=== PATIENT | male | born 1940 | race Caucasian/White ===

== ENCOUNTER 2018-11-07 17:01 | Inpatient (IN) | payer MEDICARE, MEDICAID ==
[2018-11-07] MEDS ORDERED: CARV25TA2 PO (17:23)
[2018-11-07] MEDS ORDERED: BISA10SU61 RC (17:23)
[2018-11-07] MEDS ORDERED: POLY17PO4 PO (17:23)
[2018-11-07] MEDS ORDERED: OXCA600T5 PO (17:23)
[2018-11-07] MEDS ORDERED: ERGO400T7 PO (17:23)
[2018-11-07] MEDS ORDERED: CHOL200026 PO (17:23)
[2018-11-07] MEDS ORDERED: MELA5TAB PO (17:23)
[2018-11-07] MEDS ORDERED: FAMO-131 PO (17:23)
[2018-11-07] MEDS ORDERED: GUAI5SYR4 PO (17:23)
[2018-11-07] MEDS ORDERED: NITR0.4T48 SL (17:23)
[2018-11-07] MEDS ORDERED: RISP1TAB7 PO (17:23)
[2018-11-07] MEDS ORDERED: AMLO-365 PO (17:23)
[2018-11-07] MEDS ORDERED: ASPI-605 PO (17:23)
[2018-11-07] MEDS ORDERED: ACET-73 PO (17:23)
[2018-11-07] MEDS ORDERED: ATOR80TA PO (17:23)
[2018-11-07] MEDS ORDERED: CLON0.2T PO (17:23)
[2018-11-07] MEDS ORDERED: LUBI8CAP PO (17:23)
[2018-11-07] MEDS ORDERED: LATA2.5D2 EACHEYE (17:23)
[2018-11-07] MEDS ORDERED: FOLI1TAB16 PO (17:23)
[2018-11-07] MEDS ORDERED: MAGN400O6 PO (17:23)
[2018-11-07] MEDS ORDERED: DOCU-141 PO (17:23)
[2018-11-07] MEDS ORDERED: ACETAMINOPHEN 325 MG TABLET PO PRN (18:30)
[2018-11-07] MEDS ORDERED: TEMAZEPAM 7.5 MG CAPSULE PO PRN (18:30)
[2018-11-07] MEDS ORDERED: LORAZEPAM 0.5 MG TABLET PO PRN (18:30)
[2018-11-07] MEDS ORDERED: MAG HYDROX/AL HYDROX/SIMETH 30 ML UDC PO PRN (18:30)
[2018-11-07] MEDS ORDERED: BLOOD SUGAR DIAGNOSTIC 1 EACH STRIP IN ONE (18:30)
[2018-11-07] MEDS ORDERED: MAGNESIUM HYDROXIDE 30 ML UDC PO PRN (18:30)
[2018-11-08] MEDS: QUETIAPINE FUMARATE 25 MG TABLET PO SCH ×3 (09:46→21:20)
[2018-11-08] MEDS: OXCARBAZEPINE 150 MG TABLET PO SCH ×2 (09:46→16:14)
[2018-11-08] MEDS ORDERED: CLONIDINE HCL 0.1 MG TABLET PO STA (18:23)
[2018-11-08] MEDS ORDERED: MAGNESIUM HYDROXIDE 30 ML UDC PO PRN (18:30)
[2018-11-08] MEDS ORDERED: [UNRECOGNIZED DRUG - OTHER] PO SCH (18:30)
[2018-11-08] MEDS ORDERED: VALSARTAN PO SCH (18:30)
[2018-11-08] MEDS ORDERED: HCTZ PO SCH (18:30)
[2018-11-08] MEDS ORDERED: NITROGLYCERIN 0.4 MG/TAB BOTTLE SL PRN (18:30)
[2018-11-08] MEDS ORDERED: AMLODIPINE PO SCH (18:30)
[2018-11-08] MEDS ORDERED: BISACODYL SUPP (10 MG) 10 MG/SUPP.RECT SUPP.RECT RC PRN (18:30)
[2018-11-08] MEDS: FAMOTIDINE (20 MG) 20 MG TABLET PO SCH (18:52)
[2018-11-08] MEDS: DOCUSATE SODIUM 100 MG CAPSULE PO SCH (18:52)
[2018-11-08] MEDS: FOLIC ACID 1 MG TABLET PO SCH (18:52)
[2018-11-08] MEDS ORDERED: CLONIDINE HCL 0.1 MG TABLET PO PRN (19:00)
[2018-11-08] MEDS: CARVEDILOL 12.5 MG TABLET PO SCH (20:53)
[2018-11-08] MEDS: ATORVASTATIN 40 MG TABLET PO SCH (21:20)
[2018-11-08] MEDS: LATANOPROST EYE DROP 0.005% 2.5 ML BOTTLE OP SCH (21:25)
[2018-11-08] MEDS ORDERED: Medication Not On Formulary EA (Melatonin 5 MG) PO SCH (22:00)
[2018-11-09] MEDS: ASPIRIN EC 81 MG TABLET.DR PO SCH (08:50)
[2018-11-09] MEDS: FAMOTIDINE (20 MG) 20 MG TABLET PO SCH (08:50)
[2018-11-09] MEDS: QUETIAPINE FUMARATE 25 MG TABLET PO SCH ×3 (08:50→21:50)
[2018-11-09] MEDS: FOLIC ACID 1 MG TABLET PO SCH (08:51)
[2018-11-09] MEDS: AMLODIPINE BESYLATE 10 MG TABLET PO SCH (08:51)
[2018-11-09] MEDS: VALSARTAN 80 MG TABLET PO SCH (08:52)
[2018-11-09] MEDS: POLYETHYLENE GLYCOL 3350 17 GM POWD.PACK PO SCH (08:53)
[2018-11-09] MEDS: CARVEDILOL 12.5 MG TABLET PO SCH ×2 (08:53→16:42)
[2018-11-09] MEDS: OXCARBAZEPINE 150 MG TABLET PO SCH ×2 (08:54→16:41)
[2018-11-09] MEDS: CHOLECALCIFEROL 1,000 UNIT TABLET (VIT D3) PO SCH (09:01)
[2018-11-09] MEDS: HYDROCHLOROTHIAZIDE 25 MG TABLET PO SCH (09:15)
[2018-11-09] MEDS: DOCUSATE SODIUM 100 MG CAPSULE PO SCH ×2 (09:15→16:40)
[2018-11-09] MEDS: ATORVASTATIN 40 MG TABLET PO SCH (21:50)
[2018-11-09] MEDS: LATANOPROST EYE DROP 0.005% 2.5 ML BOTTLE OP SCH (21:50)
[2018-11-10] MEDS: OXCARBAZEPINE 150 MG TABLET PO SCH ×2 (08:28→16:04)
[2018-11-10] MEDS: POLYETHYLENE GLYCOL 3350 17 GM POWD.PACK PO SCH (08:28)
[2018-11-10] MEDS: CARVEDILOL 12.5 MG TABLET PO SCH ×2 (08:29→16:04)
[2018-11-10] MEDS: QUETIAPINE FUMARATE 25 MG TABLET PO SCH ×3 (08:29→22:12)
[2018-11-10] MEDS: DOCUSATE SODIUM 100 MG CAPSULE PO SCH ×2 (08:29→16:03)
[2018-11-10] MEDS: ASPIRIN EC 81 MG TABLET.DR PO SCH (08:29)
[2018-11-10] MEDS: VALSARTAN 80 MG TABLET PO SCH (08:30)
[2018-11-10] MEDS: CHOLECALCIFEROL 1,000 UNIT TABLET (VIT D3) PO SCH (08:30)
[2018-11-10] MEDS: FOLIC ACID 1 MG TABLET PO SCH (08:30)
[2018-11-10] MEDS: HYDROCHLOROTHIAZIDE 25 MG TABLET PO SCH (08:30)
[2018-11-10] MEDS: AMLODIPINE BESYLATE 10 MG TABLET PO SCH (08:32)
[2018-11-10] MEDS: FAMOTIDINE (20 MG) 20 MG TABLET PO SCH (08:33)
[2018-11-10] MEDS ORDERED: ERGOCALCIFEROL (VITAMIN D 2) 50,000 UNIT CAPSULE PO SCH (09:00)
[2018-11-10] MEDS: LATANOPROST EYE DROP 0.005% 2.5 ML BOTTLE OP SCH (22:11)
[2018-11-10] MEDS: ATORVASTATIN 40 MG TABLET PO SCH (22:11)
[2018-11-11] MEDS: POLYETHYLENE GLYCOL 3350 17 GM POWD.PACK PO SCH (08:53)
[2018-11-11] MEDS: DOCUSATE SODIUM 100 MG CAPSULE PO SCH ×2 (08:55→17:18)
[2018-11-11] MEDS: OXCARBAZEPINE 150 MG TABLET PO SCH ×2 (08:55→17:19)
[2018-11-11] MEDS: HYDROCHLOROTHIAZIDE 25 MG TABLET PO SCH (08:56)
[2018-11-11] MEDS: VALSARTAN 80 MG TABLET PO SCH (08:57)
[2018-11-11] MEDS: AMLODIPINE BESYLATE 10 MG TABLET PO SCH (08:58)
[2018-11-11] MEDS: QUETIAPINE FUMARATE 25 MG TABLET PO SCH ×3 (08:58→21:46)
[2018-11-11] MEDS: FOLIC ACID 1 MG TABLET PO SCH (08:59)
[2018-11-11] MEDS: CHOLECALCIFEROL 1,000 UNIT TABLET (VIT D3) PO SCH (08:59)
[2018-11-11] MEDS: ASPIRIN EC 81 MG TABLET.DR PO SCH (08:59)
[2018-11-11] MEDS: FAMOTIDINE (20 MG) 20 MG TABLET PO SCH (08:59)
[2018-11-11] MEDS: CARVEDILOL 12.5 MG TABLET PO SCH ×2 (09:00→17:19)
[2018-11-11] MEDS: LATANOPROST EYE DROP 0.005% 2.5 ML BOTTLE OP SCH (21:47)
[2018-11-11] MEDS: ATORVASTATIN 40 MG TABLET PO SCH (21:47)
[2018-11-12] MEDS: CARVEDILOL 12.5 MG TABLET PO SCH (09:00)
[2018-11-12] MEDS: OXCARBAZEPINE 150 MG TABLET PO SCH (09:00)
[2018-11-12] MEDS: POLYETHYLENE GLYCOL 3350 17 GM POWD.PACK PO SCH (09:00)
[2018-11-12] MEDS: AMLODIPINE BESYLATE 10 MG TABLET PO SCH (09:00)
[2018-11-12] MEDS: DOCUSATE SODIUM 100 MG CAPSULE PO SCH (10:05)
[2018-11-12] MEDS: FAMOTIDINE (20 MG) 20 MG TABLET PO SCH (10:05)
[2018-11-12] MEDS: VALSARTAN 80 MG TABLET PO SCH (10:05)
[2018-11-12] MEDS: ASPIRIN EC 81 MG TABLET.DR PO SCH (10:05)
[2018-11-12] MEDS: FOLIC ACID 1 MG TABLET PO SCH (10:05)
[2018-11-12] MEDS: HYDROCHLOROTHIAZIDE 25 MG TABLET PO SCH (10:06)
[2018-11-12] MEDS: QUETIAPINE FUMARATE 25 MG TABLET PO SCH (10:06)
[2018-11-12] MEDS: CHOLECALCIFEROL 1,000 UNIT TABLET (VIT D3) PO SCH (10:07)
[2018-11-12] MEDS ORDERED: ASPI-1152 PO (14:16)
[2018-11-12] MEDS ORDERED: MAG30ORA PO (14:16)
[2018-11-12] MEDS ORDERED: VALS80TA2 PO (14:16)
[2018-11-12] MEDS ORDERED: AMLO10TA4 PO (14:16)
[2018-11-12] MEDS ORDERED: HYDR25TA4 PO (14:16)
[2018-11-12] MEDS ORDERED: ACET-868 PO (14:16)
[2018-11-12] MEDS ORDERED: CHOL100044 PO (14:16)
[2018-11-12] MEDS ORDERED: QUET25TA PO ×2 (14:16)
[2018-11-13] MEDS ORDERED: QUETIAPINE FUMARATE 25 MG TABLET PO SCH (22:00)
== END 2018-11-12 13:29 | disposition short-term general hospital (02) | DRG 885 ==
DX: F29 Unspecified psychosis not due to a substance or known physiological condition (principal); E43 Unspecified severe protein-calorie malnutrition; N17.0 Acute kidney failure with tubular necrosis; N18.9 Chronic kidney disease, unspecified; F03.91 Unspecified dementia, unspecified severity, with behavioral disturbance; I50.32 Chronic diastolic (congestive) heart failure; I13.0 Hypertensive heart and chronic kidney disease with heart failure and stage 1 through stage 4 chronic kidney disease, or unspecified chronic kidney disease; F41.9 Anxiety disorder, unspecified; I25.10 Atherosclerotic heart disease of native coronary artery without angina pectoris; E78.5 Hyperlipidemia, unspecified; F32.9 Major depressive disorder, single episode, unspecified

== ENCOUNTER 2018-11-12 13:56 | Inpatient (IN) | payer MEDICARE, MEDICAID ==
[~2018-11-12] VITALS: Ht 170.2 cm; Wt 87.1 kg
[~2018-11-12 13:56] MED LIST: ACET-73 PO; AMLO-365 PO; ASPI-605 PO; ATOR80TA PO; BISA10SU61 RC; CARV25TA2 PO; CHOL200026 PO; CLON0.2T PO; DOCU-141 PO; ERGO400T7 PO; FAMO-131 PO; FOLI1TAB16 PO; GUAI5SYR4 PO; LATA2.5D2 EACHEYE; LUBI8CAP PO; MAGN400O6 PO; MELA5TAB PO; NITR0.4T48 SL; OXCA600T5 PO; POLY17PO4 PO; RISP1TAB7 PO
[2018-11-12] MEDS ORDERED: CHOL100044 PO (14:16)
[2018-11-12] MEDS ORDERED: VALS80TA2 PO (14:16)
[2018-11-12] MEDS ORDERED: ACET-868 PO (14:16)
[2018-11-12] MEDS ORDERED: AMLO10TA4 PO (14:16)
[2018-11-12] MEDS ORDERED: MAG30ORA PO (14:16)
[2018-11-12] MEDS ORDERED: QUET25TA PO ×2 (14:16)
[2018-11-12] MEDS ORDERED: HYDR25TA4 PO (14:16)
[2018-11-12] MEDS ORDERED: ASPI-1152 PO (14:16)
--- NOTE | 2018-11-12 15:15 | NUR ---
ADMISSION NOTE PT WAS BROUGHT VIA BED AT THIS TIME, A/O X1 BREATHING AND EVEN AND UNLABORED ON RA WITH NO S/S OF ANY DISTRESS OR PAIN AT THIS TIME, PER FRANKO ARCHER PT IS ON BEDREST, INCONTINENT, UA WAS COLLECTED AND SENT TO LAB PER FRANKO ARCHER, SAFETY PRECAUTIONS IN PLACE, CALL LIGHT WITHIN REACH, SITTER AT BEDSIDE, WILL MONITOR PT ACCORDINGLY
--- NOTE | 2018-11-12 15:22 | NUR ---
RN NOTE HOSPITALIST MARVA CAICEDO DNP MADE AWARE THAT PT IS ON FLOOR, WILL AWAIT FOR ORDERS.
[2018-11-12] MEDS ORDERED: TEMAZEPAM 15 MG CAPSULE PO PRN (16:00)
[2018-11-12] MEDS ORDERED: ONDANSETRON HCL/PF 4 MG/2 ML VIAL IVP PRN (16:00)
[2018-11-12] MEDS ORDERED: MAG HYDROX/AL HYDROX/SIMETH 30 ML UDC PO PRN (16:00)
[2018-11-12] MEDS ORDERED: IV NS 0.9% 500 ML IV ONE (16:00)
[2018-11-12] MEDS ORDERED: MAGNESIUM HYDROXIDE 30 ML UDC PO PRN (16:00)
[2018-11-12] MEDS ORDERED: HYDROCODONE/APAP 5/325MG 1 EACH TABLET PO PRN (16:00)
[2018-11-12] MEDS ORDERED: ACETAMINOPHEN 325 MG TABLET PO PRN (16:00)
--- NOTE | 2018-11-12 16:15 | NUR ---
RN NOTE 500 ML BOLUS GIVEN AT THIS TIME ORDERED.
--- NOTE | 2018-11-12 16:43 | NUR ---
RN NOTE HOSPITALIST INFORMED THAT PT IS COMBATIVE AND CONSTANTLY TRYING TO GET OUT OF BED. ORDERS FOR SOFT WRIST RESTRAINTS GIVE, WILL IMPLEMENT AND CARRY OUT
[2018-11-12] MEDS: IV NS 0.9% 1,000 ML IV PRN (17:32)
--- NOTE | 2018-11-12 18:35 | NUR ---
RN CLOSING NOTE PT IN BED AT LOWEST AND LOCKED POSITION WITH SIDE RAILS UP X2, A/O X1 [place] SPEAKING CONFUSED, BREATHING EVEN AND UNLABORED ON 2L VIA NC, NO S/S OF ANY PAIN OR DISTRESS AT THIS TIME, IV IS PATENT AND INTACT WITH IVF RUNNING AT 100 ML/HR, SAFETY PRECAUTIONS IN PLACE, CALL LIGHT WITHIN REACH, SITTER AT BEDSIDE, WILL ENDORSE TO NIGHT RN FOR CIARAN.
--- NOTE | 2018-11-12 19:00 | NUR ---
RN OPENING NOTES Received patient A/O x1, awake on semi-Rdz's position on bed. On O2 inhalation via NC @ 2LPM, saturating well, no SOB/respiratory distress noted. With bilateral soft wrist restraints in place. With sitter at bedside at all times. No complaints made at this time, no s/sx of discomfort noted. Kept on bed clean, dry and comfortable. Will continue to monitor accordingly.
[2018-11-12] MEDS: MORPHINE SULFATE INJ 2 MG/ML DISP.SYRIN IV PRN (19:56)
--- NOTE | 2018-11-12 20:35 | NUR ---
MS RN NOTES Received a call from Paige [phone]. Inquiries answered with satisfaction. Asked the about patient's L index finger. Per , it was noted swollen since the patient is at [facility] for unknown reason.
[2018-11-13] MEDS: IV NS 0.9% 1,000 ML IV PRN ×2 (03:18→15:45)
[2018-11-13] MEDS: MORPHINE SULFATE INJ 2 MG/ML DISP.SYRIN IV PRN ×2 (03:40→23:22)
[2018-11-13 07:05] LABS: CALCIUM, SERUM 9.4 mg/dL (8.5-10.1); CARBON DIOXIDE 24 mmol/L (21-32); CHLORIDE 107 mmol/L (98-107); CREATININE 2.5 mg/dL (0.6-1.3); GLUCOSE 102 mg/dL (74-106); PHOSPHORUS 3.7 mg/dL (2.5-4.9); POTASSIUM 4.3 mmol/L (3.5-5.1); SODIUM SERUM 141 mmol/L (136-145); UREA NITROGEN, BLOOD 52 mg/dL (7-18)
--- NOTE | 2018-11-13 07:15 | NUR ---
RN NOTES PATIENT IN BED ALERT ORIENTED X 1. NO ACUTE DISTRESS NOTED. BREATHING UNLABORED. IV ACCESS PATENT AND INTACT. NO REDNESS OR SWELLING NOTED. SAFETY MEASURES IN PLACE. CALL LIGHT WITHIN REACH. WILL CONTINUE TO MONITOR ACCORDINGLY.
--- NOTE | 2018-11-13 07:27 | NUR ---
MS RN CLOSING NOTES Patient asleep, easily awaken. On bed with O2 via NC @ 2LPM, no SOB, respiration even and unlabored. With bilateral soft wrist restraint, patient remained confused and aggressive. All due meds given as ordered, medicated for pain, noted effective. Kept on bed clean, dry and comfortable. Endorsed to the next shift.
[2018-11-13 07:29] LABS: BASOPHILS % (AUTO) 0.5 % (0.0-2.0); EOSINOPHILS % (AUTO) 3.4 % (0.0-6.0); HEMATOCRIT 40 % (39-51); HEMOGLOBIN 13.3 g/dL (13.5-17.5); LYMPHOCYTES # (AUTO) 1.6 /CMM (0.8-4.8); LYMPHOCYTES % (AUTO) 23.5 % (20.0-44.0); MEAN CORPUSCULAR HGB CONC 33 g/dl (31.0-36.0); MEAN CORPUSCULAR VOLUME 92 fL (80-96); MONOCYTES # (AUTO) 0.7 /CMM (0.1-1.30); MONOCYTES % (AUTO) 10.2 % (2.0-12.0); NEUTROPHILS # (AUTO) 4.3 /CMM (1.8-8.9); NEUTROPHILS % (AUTO) 62.4 % (43.0-81.0); PLATELET COUNT (AUTO) 208 /CMM (150-450); RED BLOOD CELL COUNT(AUTO) 4.38 MIL/uL (4.5-6.0); WHITE BLOOD COUNT (AUTO) 6.9 K/uL (4.3-11.0)
[2018-11-13 08:00] VITALS: BP 169/92
--- NOTE | 2018-11-13 10:25 | NUR ---
MS RN NOTES PATIENT BECOMES AGITATED, DR DURHAM SIDE DOOR WORKER AT BEDSIDE AWARE. NOTIFIED PATTI JOSEPH WITH NEW ORDER FOR SEROquel 25 MG PO Q6HR PRN FOR AGITATION. ORDER READ BACK COMPLETED. NOTED AND CARRIED OUT.
[2018-11-13] MEDS: QUETIAPINE FUMARATE 25 MG TABLET PO PRN (10:48)
[2018-11-13 15:56] LABS: APPEARANCE,URINE CLEAR (CLEAR); BILIRUBIN,URINE NEGATIVE (NEGATIVE); BLOOD, URINE TRACE Ery/uL (NEGATIVE); COLOR,URINE YELLOW (YELLOW); CREATININE, URINE 55.8 MG/DL (30.0-125.0); KETONES,URINE NEGATIVE (NEGATIVE); LEUKOCYTE ESTERASE ,URINE TRACE (NEGATIVE); NITRITE, URINE NEGATIVE (NEGATIVE); PROTEIN,URINE 1+ mg/dl (NEGATIVE); UGLUCOSE NEGATIVE (NEGATIVE); URINE TOTAL PROTEIN 66.2 mg/dL (0-11.9); UROBILINOGEN,URINE 0.2 EU/dL (0.2)
[2018-11-13 16:00] VITALS: BP 165/100
[2018-11-13 16:10] LABS: BACTERIA,URINE Rare /HPF (None Seen); RBC,URINE 0-2 /HPF (0-2); WBC,URINE 0-2 /HPF (0-3)
[2018-11-13 17:05] LABS: EOSINOPHIL,URINE None Seen
--- NOTE | 2018-11-13 18:54 | NUR ---
RN NOTES PATIENT IN BED ALERT ORIENTED X 1. NO ACUTE DISTRESS NOTED. BREATHING UNLABORED. IV ACCESS PATENT AND INTACT. NO REDNESS OR SWELLING NOTED..DUE MEDICATIONS GIVEN, NO ASE NOTED. NEEDS ATTENDED AND ANTICIPATED. KEPT CLEAN DRY AND COMFORTABLE. SAFETY MEASURES IN PLACE. CALL LIGHT WITHIN REACH. WILL ENDORSE TO NIGHT NURSE FOR CONTINUITY OF CARE.
--- NOTE | 2018-11-13 19:10 | NUR ---
MS RN OPENING NOTES Received patient A/O x1, awake on Rdz's position on bed. With O2 inhalation via NC @ 2LPM, no SOB/respiratory distress noted. With bilateral soft wrist restraint, patient noted aggressive and combative. Kept in bed clean, dry and comfortable. Will continue to monitor accordingly.
[2018-11-13 20:00] VITALS: BP 141/85
[2018-11-13] MEDS: QUETIAPINE FUMARATE 25 MG TABLET PO SCH (21:54)
[2018-11-13] MEDS ORDERED: QUETIAPINE FUMARATE 25 MG TABLET PO SCH (22:00)
[2018-11-14] MEDS: IV NS 0.9% 1,000 ML IV PRN ×3 (02:04→23:30)
--- NOTE | 2018-11-14 06:52 | NUR ---
MS RN CLOSING NOTES Patient intermittently asleep, easily awaken. On O2 inhalation via NC @ 2LPM PRN, no SOB/respiratory distress noted. Patient noted aggressive and combative. With bilateral soft wrist restraint noted. No new complaints noted within the shift. All nursing needs attended. Kept on bed clean, dry and comfortable. Endorsed to the next shift.
[2018-11-14 07:20] LABS: BASOPHILS % (AUTO) 0.5 % (0.0-2.0); EOSINOPHILS % (AUTO) 2.7 % (0.0-6.0); HEMATOCRIT 39 % (39-51); LYMPHOCYTES # (AUTO) 1.8 /CMM (0.8-4.8); LYMPHOCYTES % (AUTO) 23.1 % (20.0-44.0); MEAN CORPUSCULAR HGB CONC 34 g/dl (31.0-36.0); MEAN CORPUSCULAR VOLUME 91 fL (80-96); MONOCYTES # (AUTO) 0.8 /CMM (0.1-1.30); NEUTROPHILS # (AUTO) 4.9 /CMM (1.8-8.9); NEUTROPHILS % (AUTO) 63.7 % (43.0-81.0); PLATELET COUNT (AUTO) 210 /CMM (150-450); RED BLOOD CELL COUNT(AUTO) 4.23 MIL/uL (4.5-6.0); WHITE BLOOD COUNT (AUTO) 7.7 K/uL (4.3-11.0)
[2018-11-14 07:22] LABS: CREATINE KINASE, TOTAL 66 U/L (39-308)
[2018-11-14 07:36] LABS: ALANINE AMINOTRANSFERASE 19 U/L (12-78); ALBUMIN 3.2 g/dL (3.4-5.0); ALKALINE PHOSPHATASE 143 U/L (46-116); ASPARTATE AMINOTRANSFERASE 14 U/L (15-37); BILIRUBIN,TOTAL 0.4 mg/dL (0.2-1.0); CALCIUM, SERUM 9.7 mg/dL (8.5-10.1); CARBON DIOXIDE 22 mmol/L (21-32); CHLORIDE 107 mmol/L (98-107); GLUCOSE 102 mg/dL (74-106); MAGNESIUM 1.9 mg/dL (1.8-2.4); PHOSPHORUS 2.9 mg/dL (2.5-4.9); POTASSIUM 4.3 mmol/L (3.5-5.1); SODIUM SERUM 140 mmol/L (136-145); TOTAL PROTEIN, SERUM 7.1 g/dL (6.4-8.2); UREA NITROGEN, BLOOD 38 mg/dL (7-18)
[2018-11-14 08:00] VITALS: BP 172/88
--- NOTE | 2018-11-14 09:51 | NUR ---
PC Hearing Notification: Paige ([phone]), pts , called the SW and the SW informed her that the pt is on the Medical Floor but he is still on a hold and therefore he will still be having the PC hearing today. She stated that she wanted an update from the MD and the SW stated that she will pass on the message.
--- NOTE | 2018-11-14 09:53 | NUR ---
Pts son, Benny ([phone]), called the SW and stated that he will be arriving early today for the PC Hearing. He stated that he thought the pts psychiatrist would be conducted the hearing but the SW informed him that the SW will be reading the MD notes during the hearing to represent the hospital. Pts son asked for the most recent note to be read. SW did and he stated that he will still be attending the hearing.
--- NOTE | 2018-11-14 10:10 | NUR ---
RHONDA called Yarely ([phone]) from [facility] and she stated that she will need to speak to her DON regarding admitting this pt. She stated that the family came to visit and they are interested in accepting sometime this week.
--- NOTE | 2018-11-14 10:30 | NUR ---
Taylor ([phone]) from [facility] contacted the and stated that the pt is accepted to their facility once he is cleared for discharge.
--- NOTE | 2018-11-14 11:18 | NUR ---
Yarely ([phone]) from [facility] called the and stated that the facility would like social work professor notes to be faxed over.
--- NOTE | 2018-11-14 11:22 | NUR ---
RHONDA faxed over social science analyst notes to [facility] with attention to Yarely to the fax number: [phone].
--- NOTE | 2018-11-14 11:32 | NUR ---
MS/RN - MD order Spoke with Dr. Martin with order to discontinue pt's hold status.
--- NOTE | 2018-11-14 11:47 | NUR ---
RHONDA called the pt's , Paige ([phone]), and informed her that the pts hold was broken and that the pt no longer needs a PC Hearing. RHONDA also informed her that the pt was accepted to [facility] and she stated that she preferred a different facility. RHONDA stated that the wrapper caser will follow up with her.
--- NOTE | 2018-11-14 12:00 | NUR ---
RHONDA called the pt's , Paige ([phone]), and informed her that the pts new manager case management is Yuriy. RHONDA then transferred the call to the manager case management for her to consult with him regarding the pts case.
[2018-11-14] MEDS: QUETIAPINE FUMARATE 25 MG TABLET PO PRN (13:23)
[2018-11-14 16:00] VITALS: BP 176/93
--- NOTE | 2018-11-14 18:35 | NUR ---
MS/RN - End of shift summary Patient in bed awake, alert to self, no c/o pain, not in any form of distress, on bilateral soft wrist restraints to prevent pulling out IV line, agitated, combative and aggressive at times, Seroquel PRN given as ordered. Continue IVF to maintain hydration, kidney function slightly improving. Fall and aspiration precautions maintained. All needs attended and met. Will continue with current medical management.
--- NOTE | 2018-11-14 19:10 | NUR ---
RN OPENING NOTES Received patient A/O x1, awake on Rdz's position on bed. Breathing even and unlabored. No SOB/respiratory distress noted. Bilateral soft wrist restraint in place, patient noted aggressive, combative and yelling out. Peripheral IV infusing at 100mL/hr. Will continue to monitor accordingly.
[2018-11-14 20:00] VITALS: BP 160/83
[2018-11-14] MEDS: QUETIAPINE FUMARATE 25 MG TABLET PO SCH (22:00)
--- NOTE | 2018-11-15 06:37 | NUR ---
MS RN CLOSING NOTES Patient in bed awake, alert to self, no c/o pain, not in any form of distress, on bilateral soft wrist restraints to prevent pulling out IV line, agitated, combative, yelling out and aggressive especially when cares are rendered. Peripheral IV infusing at 100mL/hr. Fall and aspiration precautions maintained. All needs attended. No acute changes overnight. Will endorse continuity of care to oncoming RN
[2018-11-15 08:00] VITALS: BP 158/78
--- NOTE | 2018-11-15 08:00 | NUR ---
MS RN OPENING NOTES Received patient A/O x1, awake on Rdz's position on bed. On room air.no SOB/respiratory distress noted. With bilateral soft wrist restraints, patient noted aggressive and combative. Kept in bed clean, dry and comfortable. Will continue to monitor accordingly.
--- NOTE | 2018-11-15 08:10 | NUR ---
with 1:1 sitter at bedside but the pt hits,screams and spits on the staff inspite of calm approach.
[2018-11-15] MEDS: QUETIAPINE FUMARATE 25 MG TABLET PO PRN ×2 (09:03→15:31)
[2018-11-15] MEDS: MORPHINE SULFATE INJ 2 MG/ML DISP.SYRIN IV PRN ×2 (09:03→13:07)
[2018-11-15] MEDS: IV NS 0.9% 1,000 ML IV PRN ×2 (10:13→21:58)
--- NOTE | 2018-11-15 11:22 | NUR ---
PT HAS BEEN VERY AGITATED AND SPITS PRN SEROQUEL PO MED INSPITE OF EXPLAINING RISKS AND BENEFITS.NOTIFIED ALLYSSA DURHAM AND CALLED DR MUNIZ (PSYCH) REGARDING PT'S INCREASE AGITATION AND REFUSING MEDS,DR MUNIZ STATED THAT THE PT HAS BEEN CLEARED BY PSYCH TO BE DISCHARGED WHERE FAMILY WANTS HIM TO BE AND STATING THAT ALL THIS AGITATION IS CAUSED BY PT'S DEMENTIA AND THERE IS NOTHING HE CAN DO ABOUT IT. DR MUNIZ SPOKE TO ALLYSSA DURHAM WELL AND DISCUSSED PLAN ABOUT THE PT.ALLYSSA DURHAM ALSO SPOKE TO PT'S DAUGHTER,CHUCKIE VIA PHONE.
[2018-11-15 12:07] LABS: *SPE ALPHA-1-GLOBULIN 0.3 g/dL (0.0-0.4); *SPE ALPHA-2-GLOBULIN 0.9 g/dL (0.4-1.0); *SPE BETA GLOBULIN 1.1 g/dL (0.7-1.3); *SPE GLOBULIN, TOTAL 3.1 g/dL (2.2-3.9); *SPE M-SPIKE Not Observed g/dL (Not Observed); *SPEGAMMA GLOBULIN 0.8 g/dL (0.4-1.8)
[2018-11-15 13:07] LABS: PTH, INTACT 143 pg/mL (15-65)
[2018-11-15 13:36] LABS: BASOPHILS % (AUTO) 0.5 % (0.0-2.0); HEMATOCRIT 43 % (39-51); HEMOGLOBIN 13.3 g/dL (13.5-17.5); LYMPHOCYTES # (AUTO) 1.6 /CMM (0.8-4.8); LYMPHOCYTES % (AUTO) 27.7 % (20.0-44.0); MEAN CORPUSCULAR HGB CONC 31 g/dl (31.0-36.0); MEAN CORPUSCULAR VOLUME 98 fL (80-96); MONOCYTES # (AUTO) 0.6 /CMM (0.1-1.30); MONOCYTES % (AUTO) 11.2 % (2.0-12.0); NEUTROPHILS # (AUTO) 3.3 /CMM (1.8-8.9); NEUTROPHILS % (AUTO) 57.6 % (43.0-81.0); PLATELET COUNT (AUTO) 122 /CMM (150-450); RED BLOOD CELL COUNT(AUTO) 4.35 MIL/uL (4.5-6.0); WHITE BLOOD COUNT (AUTO) 5.7 K/uL (4.3-11.0)
[2018-11-15 13:47] LABS: ALANINE AMINOTRANSFERASE 12 U/L (12-78); ALBUMIN 2.8 g/dL (3.4-5.0); ALKALINE PHOSPHATASE 122 U/L (46-116); ASPARTATE AMINOTRANSFERASE 18 U/L (15-37); BILIRUBIN,TOTAL 0.2 mg/dL (0.2-1.0); CALCIUM, SERUM 9.3 mg/dL (8.5-10.1); CARBON DIOXIDE 23 mmol/L (21-32); CHLORIDE 109 mmol/L (98-107); CREATININE 1.9 mg/dL (0.6-1.3); GLUCOSE 94 mg/dL (74-106); MAGNESIUM 1.7 mg/dL (1.8-2.4); PHOSPHORUS 2.8 mg/dL (2.5-4.9); POTASSIUM 4.8 mmol/L (3.5-5.1); SODIUM SERUM 140 mmol/L (136-145); TOTAL PROTEIN, SERUM 6.4 g/dL (6.4-8.2); UREA NITROGEN, BLOOD 28 mg/dL (7-18)
--- NOTE | 2018-11-15 13:58 | NUR ---
PT WAS SCREAMING AND UNCOOPERATIVE INSPITE OF EXPLANATION DUE TO DEMENTIA .MAGNETIC RESONANCE IMAGING DIRECTOR WAS ABLE TO DRAW BLOOD BUT NOT ENOUGH TO DO THE CBC.NOTIFIED ALLYSSA DURHAM AND WILL JUST DO CBC IN AM LABS.
[2018-11-15] MEDS ORDERED: Magnesium 1GM/D5W 100ML PREMIX 100 ML IV SCH (15:44)
[2018-11-15 16:00] VITALS: BP 148/70
--- NOTE | 2018-11-15 18:59 | NUR ---
MS RN CLOSING NOTES Patient in bed awake, alert to self, no c/o pain, not in any form of distress, with 1:1 sitter at bedside, agitated, combative, yelling out and aggressive especially when cares are rendered. Peripheral IV infusing at 100mL/hr. Fall and aspiration precautions maintained. All needs attended. No acute changes overnight. Will endorse continuity of care to oncoming RN
--- NOTE | 2018-11-15 19:25 | NUR ---
MS RN OPENING NOTES Received patient A/O x1, awake on bed, confused, aggressive and hitting the staff approaching the patient for V/S. Kept on soft bilateral wrist restraint as ordered. Kept patient on bed clean, dry and comfortable. Call light within easy reach. Will continue to monitor accordingly.
[2018-11-15] MEDS: QUETIAPINE FUMARATE 25 MG TABLET PO SCH (21:11)
--- NOTE | 2018-11-16 07:30 | NUR ---
MS RN CLOSING NOTES Patient asleep, easily awaken. With bilateral soft wrist restraints. Patient still noted aggressive and combative. All due meds given as ordered, no ASE noted. All nursing needs attended. Kept on bed clean, dry, and comfortable. On fall precautions. Call light at bedside. Endorsed to the next shift.
[2018-11-16 08:00] VITALS: BP 170/95
--- NOTE | 2018-11-16 08:00 | NUR ---
MS RN OPENING NOTES Received patient A/O x1, awake on bed, confused,calm most of the time. With aggressive behavior with the staff only when being changed during pericare only.Took all his po AM and PRN meds without difficulty. Compliant and calm most of the time. Refused AM labs inspite of explaining its risks and benefits. Pt wanting to talk to his , Paige which we allowed -pt needs reorientation often due to forgetting he just spoke to his on the phone. Released soft bilateral wrist restraints. With 1:1 sitter at the bedside. Kept patient on bed clean, dry and comfortable. Call light within easy reach. Will continue to monitor accordingly.
[2018-11-16] MEDS: QUETIAPINE FUMARATE 25 MG TABLET PO PRN ×2 (09:22→15:46)
[2018-11-16] MEDS ORDERED: VALSARTAN 80 MG TABLET PO SCH (09:30)
[2018-11-16] MEDS: IV NS 0.9% 1,000 ML IV PRN (10:13)
[2018-11-16] MEDS: MORPHINE SULFATE INJ 2 MG/ML DISP.SYRIN IV PRN ×3 (11:53→20:03)
[2018-11-16] MEDS: QUETIAPINE FUMARATE 25 MG TABLET PO SCH ×4 (11:53→21:06)
--- NOTE | 2018-11-16 13:06 | NUR ---
With discharge order but with pending SNF bed availability in [facility] which will be arranged by princess Magallon mgr.
[2018-11-16 16:00] VITALS: BP 183/99
--- NOTE | 2018-11-16 16:19 | NUR ---
CD MIXER HELPERISIDRO CALLED SAYING PT WILL NO LONGER BE DISCHARGED TO [facility] BECAUSE OF NO AVAILABLE BED,INSTEAD PT WILL BE DISCHARGE TO [facility] . CALLED PT'S ,JENNIFER AND MADE AWARE ABOUT THE CHANGE OF SNF. REPORT CALLED IN TO ROD,DESK NURSE OF [facility].
--- NOTE | 2018-11-16 18:00 | NUR ---
WASTED NORCO 5/325 MG TAB PO IN THE MED DISPENSER WITNESSED BY CO FRANKO BOWERS.
--- NOTE | 2018-11-16 18:00 | NUR ---
PT IS GETTING UPSET AND ANGRY IN WHAT'S TAKING HIM SO LONG TO GO HOME.PT UNCOOPERATIVE AND REFUSED TO TAKE HIS ROUTINE SEROQUEL 12.5 MG TAB AND NORCO WHICH HE WAS ASKING EARLIER. REFUSED HIS DINNER AND ONLY DRANK JUICE. PT REFUSED TO HAVE PHOTOS TAKEN OF HIS BUE/BLE BRUISES.
--- NOTE | 2018-11-16 18:47 | NUR ---
AWAITING FOR AMBULANCE PLATFORM POWER TECHNICIAN AT 1930.
--- NOTE | 2018-11-16 19:22 | NUR ---
MS/RN NOTES RECEIVED PT. LYING IN BED. PT. IS AWAKE, ALERT AND ORIENTED X1. PT. IS CONFUSED AND HARD OF HEARING. BREATHING EVEN AND UNLABORED ON ROOM AIR. NO SOB, RESPIRATORY DISTRESS OR COMPLAINTS OF PAIN NOTED AT THIS TIME. PT. WITH RIGHT HAND 22 GAUGE PERIPHERAL IV PRESENT, PATENT AND INTACT ADMINISTERING TO PT. NS @ 100ML/HR. PER DAYSHIFT NURSE PT. IS PENDING D/C TONIGHT TO [facility], REPORT WAS GIVEN TO FRANKO VELASCO. PER DAYSHIFT NURSE PT. EXIT CARE, DISCHARGE PAPERWORK AND BELONGINGS CHECKLIST COMPLETED, ORIGINALS PLACED IN PT. CHART. PT. REFUSED DISCHARGE PHOTOS TO BE TAKEN. PER DAYSHIFT NURSE EMS TRANSPORT ETA 193. BED LOCKED AND IN LOWEST POSITION, SIDE RAILS UP X3, BED ALARM ON, CALL LIGHT WITHIN REACH, WILL CONTINUE TO MONITOR.
--- NOTE | 2018-11-16 19:54 | NUR ---
MS/RN NOTES NOTIFIED EPIC FLOOR TRADER ÓSCAR APONTE PT. WITH ELEVATED BP 179/97 HR 73 AT REST. PT. WITH HISTORY OF HTN AND RECEIVES DIOVAN 160 MG PO DAILY. NO PRN BP MEDS CURRENTLY ORDERED. PT. IS SCHEDULED FOR D/C TONIGHT AWAITING SENIOR PROJECT LEADER/TEAM LEAD FROM EMS. PER ÓSCAR APONTE NEW ORDER: CLONIDINE 0.1MG PO X1 NOW. WILL CARRY OUT ORDER. WILL CONTINUE TO MONITOR.
[2018-11-16 20:00] VITALS: BP 179/97
[2018-11-16] MEDS ORDERED: CLONIDINE HCL 0.1 MG TABLET PO ONE (20:00)
--- NOTE | 2018-11-16 20:03 | NUR ---
MS/RN NOTES PT. COMPLAINING OF PAIN UNABLE TO SCALE, FACIAL GRIMACING AND IRRITABILITY NOTED. ADMINISTERED TO PT. PRN MORPHINE ORDERED. 2047: RECHECKED PT. BP NOTED TO BE 181/114. ADMINISTERED TO PT. ONE TIME DOSE OF CLONIDINE ORDERED. 2129: RECHECKED PT. BP NOTED TO BE 149/65 HR 71.
[2018-11-16 20:48] VITALS: BP 181/114
--- NOTE | 2018-11-16 21:39 | NUR ---
MS/RN NOTES PT. IS LYING IN BED. BREATHING EVEN AND UNLABORED ON ROOM AIR. NO SOB, RESPIRATORY DISTRESS OR COMPLAINTS OF PAIN NOTED AT THIS TIME. PER DAYSHIFT NURSE REPORT GIVEN TO FRANKO VELASCO AT [facility]. PT. EXIT CARE, DISCHARGE PAPERWORK AND BELONGINGS CHECKLIST COMPLETED, ORIGINALS PLACED IN PT. CHART, COPY PROVIDED TO AMBULANCE TRANSPORT. PT. REFUSED DISCAHRGE PHOTOS TO BE TAKEN. REMOVED PT. IV ACCESS, NO S/S OF INFECTION NOTED AT IV SITE. PT. CALLED AND INFORMED OF PT. DISCHARGE. PT. LEFT THE FLOOR IN STABLE CONDITION VIA GURNEY ACCOMPANIED BY AMBULANCE TRANSPORT AT 2139.
== END 2018-11-16 14:20 | DRG 682 ==
LOC: MEDSG2 13:56 → UNDODISIN 14:10
PROVIDERS: ADMIT Nurse Practitioner Acute Care; ATTEND Nurse Practitioner Acute Care
DX: N17.0 Acute kidney failure with tubular necrosis (principal); E43 Unspecified severe protein-calorie malnutrition; F03.91 Unspecified dementia, unspecified severity, with behavioral disturbance; I13.0 Hypertensive heart and chronic kidney disease with heart failure and stage 1 through stage 4 chronic kidney disease, or unspecified chronic kidney disease; Z68.30 Body mass index [BMI] 30.0-30.9, adult; E86.0 Dehydration; I25.10 Atherosclerotic heart disease of native coronary artery without angina pectoris; N18.9 Chronic kidney disease, unspecified; R62.7 Adult failure to thrive; I50.9 Heart failure, unspecified; F41.9 Anxiety disorder, unspecified; F32.9 Major depressive disorder, single episode, unspecified; F29 Unspecified psychosis not due to a substance or known physiological condition; Z73.6 Limitation of activities due to disability; E88.09 Other disorders of plasma-protein metabolism, not elsewhere classified; M62.50 Muscle wasting and atrophy, not elsewhere classified, unspecified site; E66.9 Obesity, unspecified
CPT/HCPCS: 36415; 71045-TC; 76770-TC; 80048-TC; 80053-TC; 81000-TC; 82550-TC; 82570-TC; 83735-TC; 83970; 84100-TC; 84155; 84155-TC; 84165; 84300-TC; 85025-TC; 87081-TC; G0378; J2270; J3475; J7030